=== PATIENT | female | born 1950 | race Caucasian/White ===

== ENCOUNTER 2023-07-29 07:44 | Inpatient (IN) | payer OTHER ==
[~2023-07-29] VITALS: Ht 160 cm; Wt 76.5 kg
[2023-07-29] VITALS (15 sets, daily range): BP systolic 98–124; BP diastolic 57–76; PULSE 70–112; RESP 14–20; TEMP 98.2–98.4; O2SAT 94–98
[~2023-07-29 07:44] MED LIST: ALBUAER3 IN; ATOR20TA PO; CHOL20004 PO; LATA0.008 OP; LISI-285 PO; MELO-335 PO; MONT-8 OR; OMEP20TA PO
[2023-07-29] MEDS: ACETAMINOPHEN IV 100 ML IV ONE (07:48)
[2023-07-29] MEDS: ceFAZolin 2 GM/D5W50ml 50 ML IV ONE (07:48)
[2023-07-29] MEDS ORDERED: PROPOFOL 10 MG/ML 20 ML IV ONE (07:51)
[2023-07-29] MEDS ORDERED: fentaNYL CITRATE 100 MCG/2 ML VL ONE (07:51)
[2023-07-29] MEDS ORDERED: DexAMETHasone SOD PHOS 10MG/1ML VIAL INJ ONE (07:51)
[2023-07-29] MEDS ORDERED: MIDAZOLAM HCL 2MG/2ML 2ml VIAL (1mg/ml) ONE (07:51)
[2023-07-29] MEDS: CELECOXIB 100 MG CAP ONE (08:10)
[2023-07-29] MEDS: PREGABALIN CAPSULE 75 MG CAP PO ONE (08:10)
[2023-07-29] MEDS: ACETAMINOPHEN IV 1000 MG/100ML (10MG/ML) IV ONE (08:10)
[2023-07-29] MEDS: TETRACAINE 1% INJ 2 ML VIAL IJ ONE (08:25)
[2023-07-29] MEDS: VANCOMYCIN HCL 1000 MG VL ONE (08:25)
[2023-07-29] MEDS: CELECOXIB 100 MG CAP PO ONE (08:30)
[2023-07-29] MEDS ORDERED: PHENYLEPHRINE HCL 10 MG/ML VL IV ONE (08:30)
[2023-07-29] MEDS ORDERED: ACETAMINOPHEN 325 MG TAB PO PRN (08:45)
[2023-07-29] MEDS: ceFAZolin 1GM/50ML 50 ML IV SCH (08:45)
[2023-07-29] MEDS ORDERED: HYDROmorphone HCL 2 MG/ML VL/or syr IV PRN ×2 (08:45→09:15)
[2023-07-29] MEDS ORDERED: MORPHINE SULFATE INJ 2 MG/ml SYRG IV PRN (08:45)
[2023-07-29] MEDS ORDERED: NITROGLYCERIN 0.4 MG SL TAB SL PRN (08:45)
[2023-07-29] MEDS ORDERED: LABETALOL HCL 5 MG/ML 4ML SYRINGE IV PRN (09:15)
[2023-07-29] MEDS ORDERED: MIDAZOLAM HCL 2MG/2ML 2ml VIAL (1mg/ml) IV PRN (09:15)
[2023-07-29] MEDS ORDERED: NALOXONE HCL 0.4 MG/ML VIAL IV PRN (09:15)
[2023-07-29] MEDS ORDERED: ePHEDrine SULFATE 50 MG/ML AMP IV PRN (09:15)
[2023-07-29] MEDS ORDERED: ONDANSETRON HCL 4 MG/2 ML VIAL IV PRN (09:15)
[2023-07-29] MEDS: BUPIVACAINE 0.25% INJ 50ML VIAL ONE ×2 (09:33→11:23)
[2023-07-29] MEDS: MORPHINE SULF PF 5 MG/10 ML VIAL ONE (09:33)
[2023-07-29] MEDS: PANTOPRAZOLE 40 MG TAB PO SCH ×2 (10:00)
[2023-07-29] MEDS: DOCUSATE SOD 100 MG CAP PO SCH (10:00)
[2023-07-29] MEDS: ENOXAPARIN SOD 40 MG/0.4 ML SYRINGE SC SCH (10:00)
[2023-07-29] MEDS: oxyCODONE ER 10 MG TAB PO SCH (10:00)
[2023-07-29] MEDS ORDERED: HYDROCHLOROTHIAZIDE PO SCH (10:00)
[2023-07-29] MEDS ORDERED: LISINOPRIL PO SCH (10:00)
[2023-07-29] MEDS: LISINOPRIL 10 MG TAB PO SCH (10:30)
[2023-07-29] MEDS: hydroCHLOROthiazide 25 MG TAB PO SCH (10:30)
[2023-07-29] MEDS: DexAMETHasone SOD PHOS 4 MG/1ML SDV INJ ONE ×2 (11:18→11:35)
[2023-07-29] MEDS: EPINEPHrine HCL 1 MG/1 ML AMP ONE ×2 (11:18→11:35)
[2023-07-29] MEDS: BUPIVACAINE 0.5% P/F INJ 10 ML VIAL ONE ×2 (11:18→11:35)
[2023-07-29] MEDS: SODIUM CHLOR 0.9% PF (SALINE LOCK) 10ML VIAL/SYR IV SCH (14:00)
[2023-07-29] MEDS: ALBUTEROL SULF HFA 90MCG INH 200DOSE IN PRN (14:00)
[2023-07-29] MEDS: LACTATED RINGER'S 1,000 ML IV SCH (16:08)
[2023-07-29] MEDS: MONTELUKAST SODIUM 10 MG TAB PO SCH (17:37)
[2023-07-29] MEDS: ATORVASTATIN 20 MG TAB PO SCH (17:37)
[2023-07-30] VITALS (11 sets, daily range): BP systolic 93–132; BP diastolic 54–71; PULSE 74–165; RESP 16–18; TEMP 97.6–98.4; O2SAT 94–97
[2023-07-30] MEDS: ceFAZolin 1GM/50ML 50 ML IV SCH (02:31)
[2023-07-30] MEDS: OXYCODONE W/ ACETAMINOPHEN 5/325MG TABLET PO PRN (04:44)
[2023-07-30] MEDS: ONDANSETRON HCL 4 MG/2 ML VIAL IV PRN (23:10)
[2023-07-31] VITALS (8 sets, daily range): BP systolic 119–138; BP diastolic 58–76; PULSE 80–104; RESP 16–19; TEMP 98–98.9; O2SAT 94–98
[2023-08-01 05:00] VITALS: BP 159/74; PULSE 87; RESP 18; TEMP 98; O2SAT 99
[2023-08-01 08:00] VITALS: PULSE 81; RESP 20; O2SAT 93
[2023-08-01 08:58] VITALS: BP 127/75; PULSE 81; RESP 20; TEMP 97.8; O2SAT 93
[2023-08-01 13:00] VITALS: BP 153/82; PULSE 109; RESP 20; TEMP 99; O2SAT 97
[2023-08-01 16:12] VITALS: BP 153/82; PULSE 99; RESP 19; TEMP 99; O2SAT 95
[2023-08-01 17:00] VITALS: BP 128/68; PULSE 95; RESP 18; TEMP 97.9; O2SAT 98
== END 2023-08-01 17:30 | disposition home health service (06) | DRG 470 ==
LOC: SUR 07:44 → OVERFLOW 08:37 → TELE 10:00 → TELE-EAST 14:34
PROVIDERS: ADMIT Orthopaedic Surgery Adult Reconstructive Orthopaedic Surgery; ATTEND Orthopaedic Surgery Adult Reconstructive Orthopaedic Surgery
PROC: 0SRD069 Replacement of Left Knee Joint with Oxidized Zirconium on Polyethylene Synthetic Substitute, Cemented, Open Approach (ICD-10-PCS; principal; 2023-07-29 08:23)
DX: M17.12 Unilateral primary osteoarthritis, left knee (principal); Z88.2 Allergy status to sulfonamides; Z88.8 Allergy status to other drugs, medicaments and biological substances
CPT/HCPCS: 71045; 73562; 86850; 86900; 86901; 93005; 97110; 97116; 97163; 97530; G0378; J0131; J0171; J1100; J2250; J2405; J2704; J3490